=== PATIENT | male | born 1980 | race Caucasian/White ===

== ENCOUNTER 2019-07-29 16:50 | Emergency (ER) | payer OTHER | END 2019-07-29 20:40 | disposition other institution (70) | LOC: ED 16:50 | DX: Z02.89 Encounter for other administrative examinations (principal) ==

== ENCOUNTER 2019-07-29 16:50 | Emergency (ER) | payer MEDICAID ==
[~2019-07-29] VITALS: Ht 170.2 cm; Wt 95.3 kg
[2019-07-29 16:58] VITALS: Ht 170.2 cm; Wt 95.3 kg
[2019-07-29 20:45] VITALS: BP 102/68
== END 2019-07-29 20:40 | disposition other institution (70) ==
LOC: ED 16:50
DX: R00.0 Tachycardia, unspecified (principal); F41.9 Anxiety disorder, unspecified; F15.90 Other stimulant use, unspecified, uncomplicated
CPT/HCPCS: J2060; J7030